=== PATIENT | male | born 1965 | race Caucasian/White ===

== ENCOUNTER 2017-06-05 16:51 | Emergency (ER) | payer BC ==
[2017-06-05] MEDS ORDERED: Diphtheria,Pertussis(Acell),Tetanus Vaccine 0.5 ML SDV IM ONE (17:02)
--- NOTE | 2017-06-05 17:04 | EDM.PDOC ---
ED HPI GENERAL MEDICAL PROBLEM - General Chief Complaint: Upper Extremity Injury/Pain Stated Complaint: SMASHED L HAND Time Seen by Provider: 06/05/17 16:55 Source of Information: Reports: Patient History Limitations: Reports: No Limitations - History of Present Illness INITIAL COMMENTS - FREE TEXT/NARRATIVE: 51 yo male here after a crush injury to the distal left 5th finger. Tetanus was last about 7 yrs ago. Pain is tolerable at the present time. 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 Skin tear to the distal pad area. Some bruising of the distal phalanx.) Neurological: Alert, Oriented, CN II-XII Intact, Normal Cognition, No Motor/ Sensory Deficits Psychiatric: Normal Affect, Normal Mood Skin Exam: Warm, Dry, Normal Color, No Rash, Ecchymosis, Wound/Incision Lymphatic: No Adenopathy Course - Orders/Labs/Meds Orders: Active Orders 24 hr Category Date Time Status Vaccines to be Administered [RC] PER UNIT ROUTINE Care 06/05/17 17:02 Active Fingers Fifth Digit Lt F4 [CR] Stat Exams 06/05/17 17:01 Ordered Meds: Medications Discontinued Medications Generic Name Dose Route Start Last Admin Trade Name Freq PRN Reason Stop Dose Admin Diphtheria/Tetanus/Acell Pertussis 0.5 ml 06/05/17 17:02 Adacel IM 06/05/17 17:03 .ONCE ONE - Radiology Interpretation Free Text/Narrative:: L 5th finger X-ray-? subtle non-displaced tuft fx Departure - Departure Time of Disposition: 17:25 Disposition: Home, Self-Care 01 Condition: Good Clinical Impression: Injury, crush, finger Qualifiers: Encounter type: initial encounter Qualified Code(s): S67.10XA - Crushing injury of unspecified finger(s), initial encounter - Discharge Information Referrals: Juan Amado MD [Primary Care Provider] - Forms: ED Department Discharge - My Orders Last 24 Hours: My Active Orders 06/05/17 17:01 Fingers Fifth Digit Lt F4 [CR] Stat 06/05/17 17:02 Vaccines to be Administered [RC] PER UNIT ROUTINE - Assessment/Plan Last 24 Hours: My Active Orders 06/05/17 17:01 Fingers Fifth Digit Lt F4 [CR] Stat 06/05/17 17:02 Vaccines to be Administered [RC] PER UNIT ROUTINE
[2017-06-05] MEDS ORDERED: Acetaminophen 500 MG Tab PO ONE (17:17)
[2017-06-05 19:39] VITALS: BP 119/77
--- NOTE | 2017-06-06 13:50 | CR ---
INDICATION: Crushed tip of the left 5th finger while removing a safe from a building. Congenital defect first and second digits. LEFT 5TH FINGER: Four images of the left 5th finger included a view of the hand and this revealed evidence of congenital anomalies at the first and second digits. A definite fracture, dislocation, or other acute bone or joint abnormality was not identified. If an occult fracture site is suspected clinically, re-examination in 10-14 days should be of further diagnostic benefit. [id number]
== END 2017-06-05 18:04 | disposition home or self-care (01) ==
LOC: FB.ED 16:51
DX: S67.197A Crushing injury of left little finger, initial encounter (principal); S60.152A Contusion of left little finger with damage to nail, initial encounter; W23.0XXA Caught, crushed, jammed, or pinched between moving objects, initial encounter; Z23 Encounter for immunization
CPT/HCPCS: 73140; 90471; 90715; 99283; A9270